=== PATIENT | male | born 1950 | race Caucasian/White ===

== ENCOUNTER 2017-10-17 06:51 | Emergency (ER) | payer OTHER ==
[2017-10-17 07:00] VITALS: BP 149/91
--- NOTE | 2017-10-17 07:41 | EDPHY ---
HPI/HX/ROS/PE/MDM Narrative: CHIEF COMPLAINT: Left foot wound HPI: The patient is a 67 y/o male with a history of diabetes and peripheral neuropathy complaining of a left foot wound he first noticed a few days ago. He first saw a new crack along a crease and callous on the ball of his left foot. He saw his [facility] doctor 3 days ago and was prescribed a "red paste with iodine " and Neosporin to use on the site. He has also been on antibiotics recently, though it's unclear for what condition. He has been keeping the area clean and bandaged. Yesterday he worked 6 hours and after taking his shoe off he saw the crack had opened and the wound was now bleeding, swollen, and red. He has some mild aching, but denies significant pain. REVIEW OF SYSTEMS: Aside from elements discussed in the HPI, a comprehensive 10-point review of systems was reviewed and is negative. PMH: Diabetes - insulin-dependent; hernia repair SOCIAL HISTORY: [facility] patient. Employed as food deliverer. PHYSICAL EXAM: General:Patient is alert, in no acute distress. ENT:Eyes are normal to inspection. ENT inspection normal. Neck: Normal inspection. Full range of motion. Respiratory:No respiratory distress. Cardiovascular: Strong peripheral pulses. Normal cap refill. Skin: Normal color. No rash. Warm and dry. Left foot: 3cm skin tear associated with callous of left medial foot along plantar aspect. No discharge or surrounding erythema. Other Extremities: Normal appearance. Full range of motion. Neuro: Oriented x3. Normal motor function. Normal sensory function. ED Course: This is a 67 y/o male with insulin-dependent diabetes who presents with a wound to the bottom of his left foot that he first noticed a few days ago. He has a skin tear on the plantar aspect of his left foot associated with the callous, but no signs of infection or active bleeding. Plan for wound care and bandaging with recommendation to continue treatments provided by his [facility] physician. Return precautions discussed. He is comfortable with this plan. General Time Seen by Provider: 10/17/17 07:26 Initial Vital Signs: Initial Vital Signs Temperature (C) 36.3 C 10/17/17 06:55 Heart Rate 96 10/17/17 06:55 Respiratory Rate 20 10/17/17 06:55 Blood Pressure 149/91 H 04/06/18 06:55 O2 Sat (%) 94 10/17/17 06:55 O2 Delivery Mode Room Air Allergies/Adverse Reactions: metformin [From Glucophage] Allergy (Verified 10/17/17 06:54) Home Medications: Medication Instructions Recorded Cephalexin [Keflex] 500 mg PO Q6H #28 cap 10/17/17 Glimepiride 10/17/17 Humalin Insulin 10/17/17 Lisinopril 10/17/17 Departure - Departure Disposition: Home, Routine, Self-Care Clinical Impression: Wound, open, foot Qualifiers: Encounter type: initial encounter Laterality: left Qualified Code(s): S91.302A - Unspecified open wound, left foot, initial encounter Diabetes Qualifiers: Diabetes mellitus type: type 2 Diabetes mellitus detention insulin use: unspecified detention insulin use status Diabetes mellitus complication status: with unspecified complications Qualified Code(s): E11.8 - Type 2 diabetes mellitus with unspecified complications Condition: Good Instructions: Acute Wounds (ED) Additional Instructions: 1. Continue keeping the wound clean and dry. 2. If you develop redness, warmth, pus, or pain at the site please take Keflex ( antibiotic) as prescribed for possible infection. Be sure to complete the entire prescription. 3. Follow up with your primary care provider for unimproved symptoms over the next week or if you develop infection. 4. Return to the ED for worsening of condition. Referrals: [facility] [Provider Group] - As per Instructions Prescriptions: Cephalexin [Keflex] 500 mg PO Q6H #28 cap Report Scribed for: Iker Ascencio Report Scribed by: Yamile Mcnally Date of Report: 10/17/17 Time of Report: 07:55 Physician Review and Approval Statement: Portions of this note were transcribed by an ED scribe. I personally performed the history, physical exam, and medical decision making; and confirm the accuracy of the information in the transcribed note.
== END 2017-10-17 08:05 | disposition home or self-care (01) ==
DX: S91.302A Unspecified open wound, left foot, initial encounter (principal); E11.9 Type 2 diabetes mellitus without complications; Z79.4 Long term (current) use of insulin; W45.8XXA Other foreign body or object entering through skin, initial encounter